=== PATIENT | female | born 1990 | race Caucasian/White ===

== ENCOUNTER → 2021-07-17 | Outpatient (CLI) | payer OTHER ==
--- NOTE | 2021-07-17 11:15 | 2DMMODE ---
[place] [address] 2 D/M-MODE ECHOCARDIOGRAM Name: ANÍBAL SEN BRI Room: [facility]#: [id number] Admission: 07/17/21 Attend Phys: Espinoza Bass Discharge: Date of : 86 Date of Service: 07/17/21 1115 Report #: [id number] THIS REPORT FOR: cc: FAM - No family physician/PCP FAM - No family physician/PCP Ken Vargas MD [facility] ~ APPROVED REPORT Study performed: 07/17/2021 11:23:03 EXAM: Comprehensive 2D, Doppler, and color-flow Echocardiogram Patient Location: Out-Patient BSA: 1.47 HR: 56 bpm BP: 120/70 mmHg Other Information Study Quality: Excellent Indications Aortic Valve Disease Dyspnea Chest Pain 2D Dimensions IVSd: 8.72 (7-11mm) LVOT Diam: 17.65 (18-24mm) LVDd: 43.83 mm PWd: 5.03 (7-11mm) Ascending Ao: 24.70 (22-36mm) LVDs: 28.34 (25-40mm) Aortic Root: 26.34 mm Volumes Left Atrial Volume (Systole) LA ESV Index: 15.80 mL/m2 Aortic Valve AoV Peak Chuy.: 1.14 m/s AO Peak Gr.: 5.22 mmHg LVOT Max P.60 mmHg AO Mean Gr.: 2.82 mmHg LVOT Mean P.25 mmHg LVOT Max V: 1.18 m/s AO V2 VTI: 22.93 cm LVOT Mean V: 0.67 m/s RENEE (VTI): 2.42 cm2 LVOT V1 VTI: 22.68 cm AI Island: 1.33 m/s2 [place] [address] 2 D/M-MODE ECHOCARDIOGRAM Name: ANÍBAL SEN Room: [facility]#: [id number] Admission: 07/17/21 Attend Phys: Espinoza Bass Discharge: Date of : 86 Date of Service: 07/17/21 1115 Report #: [id number] AI PHT: 745.07 ms Mitral Valve E/A Ratio: 1.69 MV Decel. Time: 232.06 ms MV E Max Chuy.: 0.75 m/s MV PHT: 67.30 ms MVA (PHT): 3.27 cm2 TDI E/Lateral E': 3.95 E/Medial E': 5.36 Medial E' Chuy.: 0.14 m/s Lateral E' Chuy.: 0.19 m/s Pulmonary Valve PV Peak Chuy.: 0.95 m/s PV Peak Gr.: 3.57 mmHg Tricuspid Valve RAP Estimate: 5.00 mmHg TR Peak Gr.: 16.53 mmHg RVSP: 21.53 mmHg PA Pressure: 21.53 mmHg Left Ventricle The left ventricle is normal size. There is normal LV segmental wall motion. There is normal left ventricular wall thickness. Left ventricular systolic function is normal. The left ventricular ejection fraction is within the normal range. LVEF is 55-60%. The left ventricular diastolic function is normal. Right Ventricle The right ventricle is normal size. The right ventricular systolic function is normal. Atria The left atrium size is normal. The right atrium size is normal. Aortic Valve The aortic valve is normal in structure. Mild aortic regurgitation. There is no aortic valvular stenosis. Mitral Valve The mitral valve is normal in structure. Mild mitral regurgitation. No evidence of mitral valve stenosis[place] [address] 2 D/M-MODE ECHOCARDIOGRAM Name: ANÍBAL SEN Room: [facility]#: [id number] Admission: 07/17/21 Attend Phys: Espinoza Bass Discharge: Date of : 86 Date of Service: 07/17/21 1115 Report #: [id number] The tricuspid valve is normal in structure. Mild tricuspid regurgitation. Pulmonic Valve The pulmonary valve is normal in structure. Mild pulmonic regurgitation. Great Vessels The aortic root is normal in size. IVC is normal in size and collapses >50% with inspiration. Pericardium There is no pericardial effusion. <Conclusion> LVEF is 55-60%. Mild aortic regurgitation. Mild mitral regurgitation. <ELECTRONICALLY SIGNED> By: Ken Vargas MD, FACC 07/17/21 1115 1115 1115 Ken Vargas MD, FACC /INF
== END ==
LOC: M.CRD 06-28 10:00
PROVIDERS: ATTEND Chiropractor
DX: I08.8 Other rheumatic multiple valve diseases (principal)